=== PATIENT | male | born 1965 | race African-American/Black ===

== ENCOUNTER 2020-06-21 09:53 | Emergency (ER) | payer OTHER ==
[~2020-06-21] VITALS: Ht 185.4 cm; Wt 113.0 kg
[2020-06-21 10:57] LABS: EOSINOPHILS % 0.8 % (0.0-5.0); HEMATOCRIT. 43.7 % (42.0-52.0); HEMOGLOBIN. 14.4 g/dL (14.0-18.0); LYMPHOCYTES % 31.7 % (20.0-50.0); MEAN CORPUSCULAR HEMOGLOBIN 29.4 pg (28.0-32.0); MEAN CORPUSCULAR VOLUME 89.4 fL (80.0-94.0); MEAN PLATELET VOLUME 8.5 fl (7.4-10.4); MONOCYTES % 8.3 % (2.0-8.0); NEUTROPHILS % 58.2 % (40.0-76.0); PLATELET 304 x1000/uL (130-400); RED BLOOD CELL COUNT 4.89 mill/uL (4.7-6.1); RED CELL DISTRIBUTION WIDTH 14.5 % (11.6-14.6)
[2020-06-21 11:07] LABS: CHLORIDE 104 mEq/L (98-107)
[2020-06-21] MEDS ORDERED: FUROSEMIDE 40MG/4ML VIAL IVP ONE (11:30)
[2020-06-21] MEDS ORDERED: ASPIRIN 325MG EC TABLET PO ONE (11:30)
[2020-06-21] MEDS ORDERED: CLONIDINE 0.1MG TABLET PO ONE (13:30)
[2020-06-21 14:00] VITALS: BP 184/134
== END 2020-06-21 15:26 | disposition left against medical advice (07) ==
LOC: ER 09:53
DX: I11.0 Hypertensive heart disease with heart failure (principal); I50.9 Heart failure, unspecified; N17.9 Acute kidney failure, unspecified; R77.8 Other specified abnormalities of plasma proteins; Z88.0 Allergy status to penicillin
CPT/HCPCS: 36415; 71045; 80048; 80076; 83690; 83880; 84484; 85025; 85379; 93005; 96374; 99285; J1940

== ENCOUNTER 2021-08-07 10:30 | Emergency (ER) | payer OTHER ==
[~2021-08-07] VITALS: Ht 185.4 cm; Wt 100.0 kg
[2021-08-07] MEDS ORDERED: CLONIDINE 0.2MG TABLET PO ONE (11:45)
[2021-08-07] MEDS ORDERED: FUROSEMIDE 40MG/4ML VIAL IVP ONE (11:45)
[2021-08-07 12:34] LABS: BASOPHILS % 0.6 % (0.0-2.0); EOSINOPHILS % 0.1 % (0.0-5.0); HEMATOCRIT. 39.5 % (42.0-52.0); HEMOGLOBIN. 12.5 g/dL (14.0-18.0); LYMPHOCYTES % 25.2 % (20.0-50.0); MEAN CORPUSCULAR VOLUME 88.2 fL (80.0-94.0); MEAN PLATELET VOLUME 8.7 fl (7.4-10.4); NEUTROPHILS % 66.1 % (40.0-76.0); PLATELET 274 x1000/uL (130-400); RED BLOOD CELL COUNT 4.48 mill/uL (4.7-6.1); RED CELL DISTRIBUTION WIDTH 15.6 % (11.6-14.6)
[2021-08-07 12:37] LABS: CHLORIDE 108 mEq/L (98-107)
[2021-08-07 15:38] VITALS: BP 178/100
== END 2021-08-07 15:41 | disposition short-term general hospital (02) ==
LOC: ER 10:30 → CANBEDREQ 15:49
DX: I16.0 Hypertensive urgency (principal); I11.0 Hypertensive heart disease with heart failure; I50.9 Heart failure, unspecified; G47.30 Sleep apnea, unspecified; Z20.822 Contact with and (suspected) exposure to COVID-19; Z91.14 Patient's other noncompliance with medication regimen; Z95.0 Presence of cardiac pacemaker
CPT/HCPCS: 36415; 71045; 80053; 83880; 84484; 85025; 87426; 93005; 96374; 99285; J1940

== ENCOUNTER 2021-08-15 11:35 | Emergency (ER) | payer OTHER ==
[~2021-08-15] VITALS: Ht 185.4 cm; Wt 109.0 kg
[2021-08-15] MEDS ORDERED: EPINEPHRINE 0.1MG/ML (1:10,000) 10ML SYR ONE (14:12)
[2021-08-15 14:27] LABS: BASOPHILS % 1.3 % (0.0-2.0); EOSINOPHILS % 0.7 % (0.0-5.0); HEMATOCRIT. 42.4 % (42.0-52.0); HEMOGLOBIN. 13.3 g/dL (14.0-18.0); LYMPHOCYTES % 35.5 % (20.0-50.0); MEAN CORPUSCULAR HEMOGLOBIN 27.6 pg (28.0-32.0); MEAN CORPUSCULAR VOLUME 87.5 fL (80.0-94.0); MEAN PLATELET VOLUME 8.5 fl (7.4-10.4); MONOCYTES % 9.3 % (2.0-8.0); NEUTROPHILS % 53.2 % (40.0-76.0); PLATELET 326 x1000/uL (130-400); RED BLOOD CELL COUNT 4.84 mill/uL (4.7-6.1)
[2021-08-15 14:34] LABS: CHLORIDE 107 mEq/L (98-107)
[2021-08-15] MEDS ORDERED: SODIUM CHLORIDE 0.9% 1,000 ML IV ONE (14:45)
[2021-08-15] MEDS ORDERED: MAGNESIUM/ALUMINUM HYDROXIDE/SIMETHICONE 30ML UDC PO STA (15:38)
[2021-08-15] MEDS ORDERED: VISCOUS LIDOCAINE 2% 15 ML UDC PO STA (15:38)
[2021-08-15] MEDS ORDERED: FAMOTIDINE 20MG/2ML VIAL IV STA (15:38)
[2021-08-15 17:00] LABS: CLARITY URINE CLEAR (CLEAR); COLOR URINE DARK YELLOW (YELLOW); KETONES URINE NEGATIVE (NEGATIVE); LEUKOCYTE ESTERASE URINE NEGATIVE (NEGATIVE); NITRITE URINE NEGATIVE (NEGATIVE); OCCULT BLOOD URINE NEGATIVE (NEGATIVE); PROTEIN URINE 2+ (NEGATIVE); SPECIFIC GRAVITY URINE 1.028 (1.005-1.030)
[2021-08-15 17:45] LABS: OPIATES URINE SCREEN NEGATIVE (NEGATIVE); PHENCYCLIDINE URINE SCREEN NEGATIVE (NEGATIVE)
[2021-08-15 17:47] LABS: CANNABINOID URINE SCREEN NEGATIVE (NEGATIVE); METHADONE URINE SCREEN NEGATIVE (NEGATIVE)
[2021-08-15 17:48] LABS: *AMPHETAMINES SCREEN URINE NEGATIVE (NEGATIVE); *BARBITURATES SCREEN URINE NEGATIVE (NEGATIVE)
[2021-08-15 17:50] LABS: *BENZODIAZEPINES SCREEN URINE NEGATIVE (NEGATIVE); *COCAINE SCREEN URINE NEGATIVE (NEGATIVE)
[2021-08-15 19:40] VITALS: BP 143/65
[2021-08-15] MEDS ORDERED: IOHEXOL-300 100 ML BOTTLE ONE (21:29)
== END 2021-08-15 20:22 | disposition admitted as inpatient to this hospital (09) ==
LOC: ER 11:35
DX: E87.70 Fluid overload, unspecified (principal); I24.9 Acute ischemic heart disease, unspecified; I10 Essential (primary) hypertension; I11.0 Hypertensive heart disease with heart failure; I50.9 Heart failure, unspecified
CPT/HCPCS: 36415; 71045; 74177; 80053; 80305; 81003; 83605; 83690; 83880; 84145; 84443; 84484; 85025; 87040; 87086; 93005; 96361; 96374; 99285; J3490; J7040; Q9967; Z7610